=== PATIENT | female | born 1950 | race Caucasian/White ===

== ENCOUNTER 2020-08-30 11:06 | Emergency (ER) | payer MEDICARE ==
[~2020-08-30] VITALS: Ht 160 cm; Wt 65.8 kg
[~2020-08-30 11:06] MED LIST: FAMVIR500 MG PO; NYSTATIN15 G2 PO
== END 2020-08-30 11:44 | disposition home or self-care (01) ==
LOC: ER 11:12
DX: R19.7 Diarrhea, unspecified (principal); C21.0 Malignant neoplasm of anus, unspecified; Z79.899 Other long term (current) drug therapy; R10.9 Unspecified abdominal pain; K21.9 Gastro-esophageal reflux disease without esophagitis
CPT/HCPCS: 99282

== ENCOUNTER 2023-09-30 08:34 | Emergency (ER) | payer MEDICARE ==
[~2023-09-30] VITALS: Ht 160 cm; Wt 65.8 kg
[2023-09-30 08:49] VITALS: O2SAT 100
[2023-09-30] MEDS ORDERED: LIDOCAINE HCL 1% LOCAL INJ 20 ML VIAL INJ ONE (09:45)
[2023-09-30] MEDS ORDERED: ULTRAM 50MG50 MG PO (10:25)
[2023-09-30] MEDS ORDERED: CEPHALEXIN500 MG PO (10:25)
[2023-09-30] MEDS: NEOMYCIN/POLYMYX/BACITR OINT 0.9 GM PKT TOP ONE (10:52)
== END 2023-09-30 10:49 | disposition home or self-care (01) ==
LOC: ER 08:50
DX: S92.424B Nondisplaced fracture of distal phalanx of right great toe, initial encounter for open fracture (principal); W22.09XA Striking against other stationary object, initial encounter; Y93.01 Activity, walking, marching and hiking; Y92.89 Other specified places as the place of occurrence of the external cause; K21.9 Gastro-esophageal reflux disease without esophagitis; Z85.048 Personal history of other malignant neoplasm of rectum, rectosigmoid junction, and anus
CPT/HCPCS: 12002; 73660; 99284; J2001

== ENCOUNTER 2024-04-13 21:13 | Emergency (ER) | payer MEDICARE ==
[~2024-04-13] VITALS: Ht 160 cm; Wt 65.8 kg
[~2024-04-13 21:13] MED LIST changes: +CEPHALEXIN500 MG PO; +ULTRAM 50MG50 MG PO
[2024-04-13 21:28] VITALS: TEMP 98.1
[2024-04-14 00:45] VITALS: PULSE 80; RESP 16; O2SAT 100
== END 2024-04-14 00:45 | disposition home or self-care (01) ==
LOC: ER 21:20
DX: S01.01XA Laceration without foreign body of scalp, initial encounter (principal); S20.212A Contusion of left front wall of thorax, initial encounter; W17.89XA Other fall from one level to another, initial encounter; Y93.89 Activity, other specified; Y92.89 Other specified places as the place of occurrence of the external cause; B19.20 Unspecified viral hepatitis C without hepatic coma; K21.9 Gastro-esophageal reflux disease without esophagitis; Z85.048 Personal history of other malignant neoplasm of rectum, rectosigmoid junction, and anus
CPT/HCPCS: 70450; 71250; 99283

== ENCOUNTER 2024-04-17 14:34 | Emergency (ER) | payer MEDICARE ==
[~2024-04-17] VITALS: Ht 160 cm; Wt 65.8 kg
[2024-04-17] MEDS ORDERED: ULTRAM 50MG50 MG PO (16:50)
[2024-04-17] MEDS: TRAMADOL HCL 50 MG TAB PO ONE (17:05)
[2024-04-17 17:07] VITALS: PULSE 78; RESP 16; TEMP 98.4; O2SAT 100
== END 2024-04-17 17:10 | disposition home or self-care (01) ==
LOC: ER 14:53
DX: S22.42XA Multiple fractures of ribs, left side, initial encounter for closed fracture (principal); W01.0XXA Fall on same level from slipping, tripping and stumbling without subsequent striking against object, initial encounter; Y92.89 Other specified places as the place of occurrence of the external cause; K76.9 Liver disease, unspecified; K21.9 Gastro-esophageal reflux disease without esophagitis; Z85.048 Personal history of other malignant neoplasm of rectum, rectosigmoid junction, and anus
CPT/HCPCS: 71101; 93005; 99284